=== PATIENT | male | born 1940 | race Two or more races ===

== ENCOUNTER → 2022-07-15 | Emergency (ER) | payer MEDICARE, OTHER ==
[~2022-07-15] VITALS: Ht 172.7 cm; Wt 130.0 kg
[~2022-07-15] MED LIST: CIPR-173 PO; HYDROcodone-ACET 5/325MG TAB PO ONE; PERCOT PO; TAM04C PO
[2022-07-15 21:50] VITALS: BP 144/97
[2022-07-15 23:08] LABS: Hemoglobin 15.4 g/dL (13.5-17.5); Red Cell Distribution Width 15.4 % (11.8-14.3)
[2022-07-15 23:11] LABS: Hematocrit 44.3 % (41.0-53.0); Mean Corpuscular Hemoglobin 36.8 pg (28.0-32.0); Mean Corpuscular Hgb Conc. 34.7 g/dL (32.0-36.0); Red Blood Cells 4.18 10^6/uL (4.5-5.90)
[2022-07-15 23:15] LABS: Basophils % (manual) 0 (0.0-2.0); Blast Cells 0; Metamyelocytes % 0; Promyelocytes % 0; Reactive Lymphocytes 0
[2022-07-15 23:21] LABS: BUN/Creatinine Ratio 15.5; Calcium 9.4 mg/dL (8.5-10.1); Potassium 3.6 mmol/L (3.5-5.1)
[2022-07-15 23:24] LABS: Bilirubin, Total 0.7 mg/dL (0.2-1.0); Total Protein 6.6 g/dL (6.4-8.2)
[2022-07-16 01:14] LABS: Band Neutrophils % (manual) 8; Eosinophils % (manual) 4 (0-7); Myelocytes % 1
[2022-07-16 01:15] LABS: Lymphocytes % (manual) 20 (10.0-50.0); Monocytes % (manual) 10 (0-12)
[2022-07-16 07:09] LABS: Urine Bacteria FEW /hpf (None Seen); Urine Blood Negative /uL (Negative); Urine Mucus FEW (None Seen); Urine WBC 8 /hpf (0 - 3)
[2022-07-16 07:34] LABS: Urine Specific Gravity > 1.050 (1.001-1.035)
== END | disposition home or self-care (01) ==
LOC: ER 21:50 → EDBD 21:50
DX: S33.5XXA Sprain of ligaments of lumbar spine, initial encounter (principal); N20.0 Calculus of kidney; E11.9 Type 2 diabetes mellitus without complications; I10 Essential (primary) hypertension; I25.2 Old myocardial infarction; X58.XXXA Exposure to other specified factors, initial encounter; Y93.89 Activity, other specified; Y92.89 Other specified places as the place of occurrence of the external cause; Y99.8 Other external cause status
CPT/HCPCS: 36415; 71045; 74177; 80053; 81001; 83690; 85007; 85027; 93005